=== PATIENT | male | born 1995 | race Caucasian/White ===

== ENCOUNTER 2021-08-20 10:59 | Emergency (ER) | payer OTHER ==
[~2021-08-20] VITALS: Ht 167.6 cm; Wt 55.8 kg
[2021-08-20 11:21] VITALS: BP 146/83
--- NOTE | 2021-08-20 11:48 | NUR ---
PT AMBULATED TO ER BED NO. 1.
--- NOTE | 2021-08-20 12:13 | NUR ---
26 y/o male, c/o multiple abscess on head and left arm 9/10 pain. pt states he used heroin today and has bump at injection site. a&ox4, ambulates with even and steady gait. pt states he was just recently tested for stds after sexual intercourse. lung sounds clear bl, heart sounds even. pmh: drug abuse nka med: denies
[2021-08-20] MEDS ORDERED: CEPH-588 PO (12:44)
[2021-08-20] MEDS ORDERED: SULF-59 PO (12:44)
[2021-08-20] MEDS ORDERED: BACTO TP (12:44)
--- NOTE | 2021-08-20 12:55 | NUR ---
Patient discharged with v/s stable. Written and verbal after care instructions ABOUT CELLULITIS AND PHLEBITIS given and explained. Patient alert, oriented and verbalized understanding of instructions. Ambulatory with steady gait. All questions addressed prior to discharge. ID band removed. Patient advised to follow up with PMD. Rx of KEFLEX, BACTROBAN AND BACTRIM DS given. Patient educated on indication of medication including possible reaction and side effects. Opportunity to ask questions provided and answered.
== END 2021-08-20 12:55 | disposition home or self-care (01) ==
LOC: MED 10:59
DX: I80.9 Phlebitis and thrombophlebitis of unspecified site (principal); L03.114 Cellulitis of left upper limb
CPT/HCPCS: 99283

== ENCOUNTER 2021-10-03 16:40 | Emergency (ER) | payer OTHER ==
[~2021-10-03] VITALS: Ht 167.6 cm; Wt 55.8 kg
[~2021-10-03 16:40] MED LIST: BACTO TP; CEPH-588 PO; SULF-59 PO
[2021-10-03 16:43] VITALS: BP 146/93
--- NOTE | 2021-10-03 16:49 | NUR ---
PT AMBULATED TO BED 02.
--- NOTE | 2021-10-03 17:28 | NUR ---
PATIENT ELOPED FROM FACILITY. DISCHARGE INSTRUCTIONS NOT GIVEN TO PATIENT. DR. BURTON NOTIFIED.
--- NOTE | 2021-10-03 17:28 | NUR ---
PT YELLING AROUND, THREATENING MEDICAL STAFF, RUNNING OFF THE ED VIA AMBULACE DOUBLE DOOR. NO TIME TO DO ASSESSMENT.
== END 2021-10-03 17:16 | disposition left against medical advice (07) ==
LOC: MED 16:40
DX: R03.0 Elevated blood-pressure reading, without diagnosis of hypertension (principal); F60.0 Paranoid personality disorder; F12.90 Cannabis use, unspecified, uncomplicated; F11.90 Opioid use, unspecified, uncomplicated; Z79.899 Other long term (current) drug therapy
CPT/HCPCS: 99281